=== PATIENT | female | born 1995 | race Caucasian/White ===

== ENCOUNTER 2017-03-15 17:15 | Emergency (ER) | payer OTHER ==
[2017-03-15 17:33] VITALS: BP 144/69; PULSE 107; TEMP 98.3; BMI 19.3
--- NOTE | 2017-03-15 17:40 | PDOC ---
Rapid Medical Evaluation Time Seen by Provider: 03/15/17 17:29 Medical Evaluation: Allergies Allergy/AdvReac Type Severity Reaction Status Date / Time No Known Allergies Allergy Verified 03/15/17 17:29 Vital Signs Temp Pulse Resp BP Pulse Ox 98.3 F 107 H 16 144/69 100 03/15/17 17:31 03/15/17 17:31 03/15/17 17:31 03/15/17 17:31 03/15/17 17:31 03/15/17 17:38 Pt presents to the ED with complaints of: low abd pain, no urinary or vaginal complaints, 6 weeks preg, no u/s yet On brief exam: vss Pt ordered for: ua, ucx Pt to proceed to the ED Discharge Disposition - Diagnosis Lower abdominal pain - Referrals - Patient Instructions - Post Discharge Activity
[2017-03-15 18:18] LABS: URINE APPEARANCE CLEAR; URINE BILIRUBIN NEGATIVE (NEGATIVE); URINE BLOOD NEGATIVE (NEGATIVE); URINE COLOR STRAW; URINE GLUCOSE (UA) NEGATIVE (NEGATIVE); URINE KETONE NEGATIVE (NEGATIVE); URINE LEUK ESTERASE TRACE (NEGATIVE); URINE NITRITE NEGATIVE (NEGATIVE); URINE PROTEIN NEGATIVE (NEGATIVE); URINE UROBILINOGEN NEGATIVE mg/dL (0.2-1.0)
[2017-03-15 18:27] LABS: EPI CELLS RARE /HPF (FEW); URINE MUCUS RARE
--- NOTE | 2017-03-15 20:46 | PDOC ---
History of Present Illness - General History Source: Patient Exam Limitations: No Limitations - History of Present Illness Initial Comments: 03/15/17 21:22 The patient is a 21 year old female, G 1 P0 A 0 with no significant past medical history, who presents to the emergency department with, lower quadrant pain, dysuria, and yellow discharge. The patient reports taking two at home tests which were both positive. She describes her pain as waxing and waning. She describes her yellow discharge as not foul smelling. She denies recent fevers, chills, headache or dizziness. She denies recent nausea, vomit, diarrhea or constipation. She denies recent frequency, urgency or hematuria. She denies recent chest pain or shortness of breath. Allergies: NKA Past surgical history: None reported. Social history: Nonsmoker. Denies EtOH use and recreational drug use. Primary Care Physician: Dr. Magy Renteria OB: Dr. Marni Gonzalez <Bruce Ray - Last Filed: 03/15/17 21:24> <Natalia Frey - Last Filed: 03/16/17 07:09> - General Chief Complaint: Pain Stated Complaint: PAIN Time Seen by Provider: 03/15/17 17:29 Past History <Bruce Ray - Last Filed: 03/15/17 21:24> - Past Medical History COPD: No - Reproductive History Is Patient Now?: Yes (#): 1 - Suicide/Smoking/Psychosocial Hx Smoking History: Never smoked Have you smoked in the past 12 months: No Information on smoking cessation initiated: No Hx Alcohol Use: No Drug/Substance Use Hx: No Substance Use Type: None <Natalia Frey - Last Filed: 03/16/17 07:09> - Past Medical History Allergies/Adverse Reactions: Allergies Allergy/AdvReac Type Severity Reaction Status Date / Time No Known Allergies Allergy Verified 03/15/17 17:29 Home Medications: Ambulatory Orders NK [No Known Home Medication] 03/15/17 Review of Systems - Review of Systems Able to Perform ROS?: Yes Comments:: 03/15/17 21:23 GENERAL/CONSTITUTIONAL: No fever or chills. No weakness. HEAD, EYES, EARS, NOSE AND THROAT: No change in vision. No ear pain or discharge. No sore throat. CARDIOVASCULAR: No chest pain or shortness of breath. RESPIRATORY: No cough, wheezing, or hemoptysis. GASTROINTESTINAL: No nausea, vomiting, diarrhea or constipation. ABDOMEN: +LQ pain. GENITOURINARY: +Dysuria. +Yellow discharge. No frequency, or change in urination. MUSCULOSKELETAL: No joint or muscle swelling or pain. No neck or back pain. SKIN: No rash NEUROLOGIC: No headache, vertigo, loss of consciousness, or change in strength/ sensation. ENDOCRINE: No increased thirst. No abnormal weight change. HEMATOLOGIC/LYMPHATIC: No anemia, easy bleeding, or history of blood clots. ALLERGIC/IMMUNOLOGIC: No hives or skin allergy. All Other Systems: Reviewed and Negative <Bruce Ray - Last Filed: 03/15/17 21:24> *Physical Exam - Vital Signs Last Vital Signs Temp Pulse Resp BP Pulse Ox 98.3 F 107 H 16 144/69 100 03/15/17 17:31 03/15/17 17:31 03/15/17 17:31 03/15/17 17:31 03/15/17 17:31 - Physical Exam Comments: 03/15/17 21:24 GENERAL: Awake, alert, and fully oriented, in no acute distress HEAD: No signs of trauma EYES: PERRLA, EOMI, sclera anicteric, conjunctiva clear ENT: Auricles normal inspection, hearing grossly normal, nares patent, oropharynx clear without exudates. Moist mucosa NECK: Normal ROM, supple, no lymphadenopathy, JVD, or masses LUNGS: Breath sounds equal, clear to auscultation bilaterally. No wheezes, and no crackles HEART: Regular rate and rhythm, normal S1 and S2, no murmurs, rubs or gallops ABDOMEN: Soft, nontender, normoactive bowel sounds. No guarding, no rebound. No masses PELVIC: +Yellow discharge. External genitalia normal without lesions.No cervical motion tenderness. No adnexal tenderness. EXTREMITIES: Normal range of motion, no edema. No clubbing or cyanosis. No cords, erythema, or tenderness NEUROLOGICAL: Cranial nerves II through XII grossly intact. Normal speech, normal gait SKIN: Warm, Dry, normal turgor, no rashes or lesions noted. <Bruce Ray - Last Filed: 03/15/17 21:24> - Vital Signs Last Vital Signs Temp Pulse Resp BP Pulse Ox 98.3 F 107 H 16 144/69 100 03/15/17 17:31 03/15/17 17:31 03/15/17 17:31 03/15/17 17:31 03/15/17 17:31 <Natalia Frey - Last Filed: 03/16/17 07:09> ED Treatment Course - ADDITIONAL ORDERS Additional order review: Laboratory Results 03/15/17 03/15/17 20:16 18:11 Beta HCG, Quant 37006.0 Urine Color Straw Urine Appearance Clear Urine pH 6.0 Ur Specific [place] 1.015 Urine Protein Negative Urine Glucose (UA) Negative Urine Ketones Negative Urine Blood Negative Urine Nitrite Negative Urine Bilirubin Negative Urine Urobilinogen Negative Ur Leukocyte Esterase Trace Urine WBC (Auto) 1 Urine RBC (Auto) <1 Ur Epithelial Cells Rare Urine Mucus Rare <Bruce Ray - Last Filed: 03/15/17 21:24> - ADDITIONAL ORDERS Additional order review: Laboratory Results 03/15/17 18:11 Urine Color Straw Urine Appearance Clear Urine pH 6.0 Ur Specific [place] 1.015 Urine Protein Negative Urine Glucose (UA) Negative Urine Ketones Negative Urine Blood Negative Urine Nitrite Negative Urine Bilirubin Negative Urine Urobilinogen Negative Ur Leukocyte Esterase Trace Urine WBC (Auto) 1 Urine RBC (Auto) <1 Ur Epithelial Cells Rare Urine Mucus Rare - RADIOLOGY Radiology Studies Ordered: Category Date Time Status <14WKS US [US] Stat Ultrasound 03/15/17 19:24 Ordered <Natalia Frey - Last Filed: 03/16/17 07:09> Medical Decision Making - Medical Decision Making 03/16/17 07:08 UA: no UTI; Abd exam normal. SOno demonstrates live 7 week IUP with good FH. Pelvic exam normal. No vag bleeding. <Natalia Frey - Last Filed: 03/16/17 07:09> *DC/Admit/Observation/Transfer - Attestations Scribe Attestion: 03/15/17 21:24 Documentation prepared by Bruce Ray, acting as medical delivery technician for Natalia Frey MD. <Bruce Ray - Last Filed: 03/15/17 21:24> - Discharge Dispostion Admit: No <Natalia Frey - Last Filed: 03/16/17 07:09> Diagnosis at time of Disposition: Lower abdominal pain, 7 weeks gestation of - Discharge Dispostion Disposition: HOME Condition at time of disposition: Stable - Referrals Referrals: Magy Renteria [Primary Care Provider] - - Patient Instructions Printed Discharge Instructions: DI for Abdominal Pain -- Early - Post Discharge Activity
== END 2017-03-15 22:31 | disposition home or self-care (01) ==
LOC: JER 17:15
DX: O26.891 Other specified pregnancy related conditions, first trimester (principal); R10.30 Lower abdominal pain, unspecified; Z3A.01 Less than 8 weeks gestation of pregnancy
CPT/HCPCS: 36415; 76801-TC; 81003; 81015; 84702; 87086; 87491; 87591; 99283-25

== ENCOUNTER 2017-10-20 03:50 | Inpatient (IN) | payer OTHER ==
[2017-10-20] MEDS: DEXTROSE 5%-LACTATED RINGERS 1,000 ML IV SCH (04:20)
[2017-10-20] MEDS ORDERED: AMPICILLIN SODIUM 2 GM VIAL ONE (04:22)
[2017-10-20] MEDS ORDERED: AMPICILLIN - 2 GM in SODIUM CHLORIDE 100 ML IVPB ONE (04:30)
[2017-10-20 04:32] LABS: BASO % 0.1 % (0-2.0); EOS % 0.2 % (0-4.5); HEMATOCRIT 40.3 % (32.4-45.2); HEMOGLOBIN 13.3 GM/dL (10.7-15.3); LYMPH % 10.9 % (8-40); MCH 27.6 pg (25.7-33.7); MEAN CELL VOLUME 83.6 fl (80-96); MEAN PLT VOLUME 8.8 fl (7.5-11.1); MONO % 3.7 % (3.8-10.2); NEUT % 85.1 % (42.8-82.8); PLATELET COUNT 191 K/MM3 (134-434); RBC 4.82 M/mm3 (3.60-5.2); RDW 15.4 % (11.6-15.6); WHITE BLOOD COUNT 12.5 K/mm3 (4.0-10.0)
[2017-10-20 04:36] VITALS: BMI 24.7
[2017-10-20 04:45] LABS: INR 0.99 (0.83-1.09); PROTHROMBIN TIME (PATIENT) 11.2 SEC (9.7-13.0)
[2017-10-20 04:48] LABS: ACTIVATED PTT 26.7 SECONDS (25.2-36.5)
[2017-10-20] MEDS ORDERED: BUTORPHANOL TARTRATE 1 MG/ML VIAL ONE ×2 (04:52)
[2017-10-20] MEDS ORDERED: PROMETHAZINE HCL 25 MG/1 ML VIAL ONE (04:52)
[2017-10-20 04:53] LABS: ANION GAP 4 (8-16); BLOOD UREA NITROGEN 10 mg/dL (7-18); CALCIUM 8.6 mg/dL (8.5-10.1); CHLORIDE 108 mmol/L (98-107); CO2 28 mmol/L (21-32); CREATININE 0.6 mg/dL (0.55-1.02); GLUCOSE,RANDOM 120 mg/dL (74-106); POTASSIUM 3.9 mmol/L (3.5-5.1); SODIUM 140 mmol/L (136-145)
[2017-10-20] MEDS ORDERED: PROMETHAZINE HCL 25 MG/1 ML VIAL IVPB ONE (05:00)
[2017-10-20] MEDS ORDERED: BUTORPHANOL TARTRATE 1 MG/ML VIAL IVPB ONE (05:00)
[2017-10-20] MEDS: AMPICILLIN - 1 GM in SODIUM CHLORIDE 100 ML IVPB SCH ×2 (08:40→13:23)
[2017-10-20] MEDS ORDERED: TUBERCULIN PPD 5 TU/0.1ML SYRINGE (IN PATIENT USE ONLY) ID ONE (09:00)
[2017-10-20] MEDS ORDERED: FENTANYL/BUPIVACAINE/NS/PF - PCEA - 50 ML DISP.SYRIN EP ONE (09:35)
[2017-10-20] MEDS ORDERED: OXYTOCIN 30 UNITS in 0.9% NS 30 UNIT/500 ML INFUS.BAG IVPB ONE (09:36)
[2017-10-20] MEDS ORDERED: LIDOCAINE HCL 1% PRESERVATIVE FREE - 30ML VIAL ONE (09:43)
[2017-10-20] MEDS ORDERED: BUPIVACAINE HCL/PF 0.25% (2.5MG/ML) 10 ML VIAL ONE (09:56)
[2017-10-20] MEDS ORDERED: NALOXONE HCL 0.4 MG/ML VIAL IVPUSH PRN (10:17)
[2017-10-20] MEDS ORDERED: FENTANYL/BUPIVACAINE/NS/PF - PCEA - 50 ML DISP.SYRIN EP SCH (10:30)
--- NOTE | 2017-10-20 10:49 | HP ---
Past Medical History - Admission Chief Complaint: Labor pain History of Present Illness: 22 yo , LMP 01/22/17, EDC 11/06/17, @ 37 weeks gestation, admitted for labor pain. History Source: Patient Limitations to Obtaining History: No Limitations - Past Medical History ...: 1 ...Para: 0 ...Term: 0 ...: 0 ...Spon : 0 ...Induced : 0 ...Multiple Gestation: 0 ...LMP: 01/22/17 ... Weeks Gestation by Dates: 37.2 ...EDC by Dates: 11/07/17 ...EDC by Sono: 11/06/17 - Past Surgical History Past Surgical History: Yes: None Hx Myomectomy: No Hx Transabdominal Cerclage: No - Smoking History Smoking history: Never smoked Have you smoked in the past 12 months: No - Alcohol/Substance Use Hx Alcohol Use: No History of Substance Use: reports: None - Social History Usual Living Arrangement: Yes: With Spouse History of Recent Travel: No Home Medications - Allergies Allergies/Adverse Reactions: Allergies Allergy/AdvReac Type Severity Reaction Status Date / Time No Known Allergies Allergy Verified 10/19/17 17:17 - Home Medications Home Medications: Ambulatory Orders Vit/Iron Fum/Folic AC [ Tablet] 1 each PO DAILY 07/16/17 Review of Systems - Review of Systems Constitutional: reports: No Symptoms Eyes: reports: No Symptoms HENT: reports: No Symptoms Neck: reports: No Symptoms Cardiovascular: reports: No Symptoms Respiratory: reports: No Symptoms Gastrointestinal: reports: No Symptoms Genitourinary: reports: Pain Breasts: reports: No Symptoms Reported Musculoskeletal: reports: No Symptoms Integumentary: reports: No Symptoms Neurological: reports: No Symptoms Endocrine: reports: No Symptoms Hematology/Lymphatic: reports: No Symptoms Psychiatric: reports: No Symptoms Pain Intensity: 9 Physical Exam - Maternity Vital Signs: Vital Signs Temperature 99.8 F H 10/20/17 10:15 Pulse Rate 87 10/20/17 10:25 Respiratory Rate 20 10/20/17 10:25 Blood Pressure 108/65 10/20/17 10:25 O2 Sat by Pulse Oximetry (%) 96 10/20/17 10:25 Constitutional: Yes: Well Nourished Eyes: Yes: Conjunctiva Clear HENT: Yes: Atraumatic Neck: Yes: Supple Cardiovascular: Yes: Regular Rate and Rhythm Lungs: Clear to auscultation Breast(s): Yes: WNL - Abdominal Exam/OB Number of Fetuses: Single Presentation: Vertex Intensity: Mod/Strong - Physical Exam Musculoskeletal: Yes: WNL Extremities: Yes: WNL ...Motor Strength: WNL Psychiatric: Yes: Alert, Oriented - Labs Lab Results: CBC, BMP 10/20/17 04:20 10/20/17 04:20 Problem List - Problems (1) 37 weeks gestation of Code(s): Z3A.37 - 37 WEEKS GESTATION OF (2) Pain during labor Code(s): O99.89 - OTH DISEASES AND CONDITIONS COMPL PREG/CHLDBRTH; R52 - PAIN, UNSPECIFIED Assessment/Plan 37 weeks gestation Active labor Admit to L&D Anticipate
[2017-10-20] MEDS ORDERED: BISACODYL 10 MG SUPP.RECT RC PRN (11:16)
[2017-10-20] MEDS ORDERED: WITCH HAZEL 50% (TUCKS) 40 PAD/JAR PAD TP PRN (11:16)
[2017-10-20] MEDS ORDERED: BENZOCAINE 28 GM HEMORRHOIDAL OINTMENT TP PRN (11:16)
[2017-10-20] MEDS ORDERED: METHYLERGONOVINE MALEATE 0.2 MG/1 ML AMP IM PRN (11:16)
[2017-10-20] MEDS ORDERED: BENZOCAINE 20% 57 GM BOTTLE TP PRN (11:16)
[2017-10-20] MEDS ORDERED: ACETAMINOPHEN 325 MG TABLET (FP) PO PRN (11:16)
--- NOTE | 2017-10-20 11:16 | PN ---
Delivery - Delivery Vaginal Delivery: Spontaneous Type of Anesthesia: Epidural Episiotomy/Laceration: Midline EBL (cc): 300 Delivery, Single - Feeding Plan Initial Plan: Exclusive throughout hospitalization Remarks - Remarks Remarks: Normal spontaneous vaginal delivery of a live boy over midline episiotomy. Nose / Oropharynx suctioned @ perineum. Cord clamped and cut. Placenta expelled spontaneously intact. Episiotomy repaired with 2.0 Chromic.
[2017-10-20] MEDS ORDERED: ELECTROLYTE-148 SOLN 1,000 ML IV SCH (11:30)
[2017-10-20] MEDS ORDERED: OXYTOCIN 20 UNITS in 0.9% NS 20 UNIT/1,000 ML INFUS.BAG IV SCH (11:30)
[2017-10-20] MEDS ORDERED: IBUPROFEN 600 MG TABLET (FP) PO ONE (11:43)
[2017-10-20] MEDS ORDERED: ACETAMINOPHEN 325 MG TABLET (FP) ONE (11:43)
[2017-10-20] MEDS: IBUPROFEN 600 MG TABLET (FP) PO PRN (11:44)
[2017-10-20] MEDS: FERROUS SO4 325 MG TABLET (FP) PO SCH (22:05)
--- NOTE | 2017-10-21 05:02 | PN ---
Post Progress Note - Subjective Subjective: 22 yo Para 1 status post vaginal delivery, seen and evaluated. No complaints. Post Day: 1 Type of Delivery: Vital Signs: Vital Signs Temperature 98.4 F 10/20/17 21:37 Pulse Rate 81 10/20/17 21:37 Respiratory Rate 20 10/20/17 21:37 Blood Pressure 116/59 10/20/17 21:37 O2 Sat by Pulse Oximetry (%) 100 10/20/17 12:30 Breast Exam: Yes: Soft Uterus: Yes: Fundus Firm Abdomen/GI: Yes: Abdomen soft, Tolerating PO Lochia: Yes: Rubra Lochia, amount: Moderate Extremities: Yes: Calves non-tender Perineum: Yes: Episiotomy (Healing) Activity: Ambulating - Labs Labs: CBC WBC 12.5 K/mm3 (4.0-10.0) H 10/20/17 04:20 RBC 4.82 M/mm3 (3.60-5.2) 10/20/17 04:20 Hgb 13.3 GM/dL (10.7-15.3) 10/20/17 04:20 Hct 40.3 % (32.4-45.2) 10/20/17 04:20 MCV 83.6 fl (80-96) 10/20/17 04:20 MCH 27.6 pg (25.7-33.7) 10/20/17 04:20 MCHC 33.0 g/dl (32.0-36.0) 10/20/17 04:20 RDW 15.4 % (11.6-15.6) D 10/20/17 04:20 Plt Count 191 K/MM3 (134-434) 10/20/17 04:20 MPV 8.8 fl (7.5-11.1) 10/20/17 04:20 Absolute Neuts (auto) 10.6 # 10/20/17 04:20 Neutrophils % 85.1 % (42.8-82.8) H D 10/20/17 04:20 Lymphocytes % 10.9 % (8-40) D 10/20/17 04:20 Monocytes % 3.7 % (3.8-10.2) L 10/20/17 04:20 Eosinophils % 0.2 % (0-4.5) D 10/20/17 04:20 Basophils % 0.1 % (0-2.0) 10/20/17 04:20 Nucleated RBC % 0 % (0-0) 10/20/17 04:20 Problem List - Problems (1) 37 weeks gestation of Code(s): Z3A.37 - 37 WEEKS GESTATION OF (2) Pain during labor Code(s): O99.89 - OTH DISEASES AND CONDITIONS COMPL PREG/CHLDBRTH; R52 - PAIN, UNSPECIFIED (3) Status post normal vaginal delivery Code(s): [id number] - Assessment/Plan Status post vaginal delivery Stable Continue routine care
[2017-10-21] MEDS: DEXTROSE 5%-LACTATED RINGERS 1,000 ML IV SCH (07:22)
[2017-10-21 08:17] LABS: BASO % 0.3 % (0-2.0); EOS % 1.4 % (0-4.5); HEMATOCRIT 36.2 % (32.4-45.2); HEMOGLOBIN 12.2 GM/dL (10.7-15.3); LYMPH % 19.9 % (8-40); MCHC 33.6 g/dl (32.0-36.0); MEAN CELL VOLUME 83.5 fl (80-96); MEAN PLT VOLUME 8.6 fl (7.5-11.1); MONO % 5.1 % (3.8-10.2); NEUT % 73.3 % (42.8-82.8); PLATELET COUNT 171 K/MM3 (134-434); RBC 4.33 M/mm3 (3.60-5.2); RDW 15.3 % (11.6-15.6); WHITE BLOOD COUNT 13.9 K/mm3 (4.0-10.0)
[2017-10-21] MEDS: PRENATAL VITAMINS W/ FOLIC ACID TABLET (FP) PO SCH (09:05)
[2017-10-21] MEDS: FERROUS SO4 325 MG TABLET (FP) PO SCH ×2 (09:05→21:23)
[2017-10-21] MEDS: IBUPROFEN 600 MG TABLET (FP) PO PRN (11:08)
[2017-10-21] MEDS ORDERED: SENNOSIDES/DOCUSATE COMBO (SENNA PLUS) TABLET (UD) PO PRN (22:00)
[2017-10-21 22:05] VITALS: PULSE 83
--- NOTE | 2017-10-22 00:49 | DS ---
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 Vital Signs: Vital Signs Temperature 98.9 F 10/21/17 22:00 Pulse Rate 83 10/21/17 22:00 Respiratory Rate 18 10/21/17 22:00 Blood Pressure 107/64 10/21/17 22:00 O2 Sat by Pulse Oximetry (%) 100 10/20/17 12:30 Constitutional: Yes: Well Nourished Eyes: Yes: Conjunctiva Clear HENT: Yes: Atraumatic Neck: Yes: Supple Cardiovascular: Yes: Regular Rate and Rhythm Respiratory: Yes: Regular Gastrointestinal: Yes: Normal Bowel Sounds Renal/: Yes: WNL Vaginal Exam: Yes: Normal Cervix: Yes: Normal Uterus: Yes: Firm Extremities: Yes: WNL Neurological: Yes: Alert, Oriented ...Motor Strength: WNL Psychiatric: Yes: Alert, Oriented Labs: CBC, BMP 10/21/17 07:30 10/20/17 04:20 Delivery - Delivery Vaginal Delivery: Spontaneous Type of Anesthesia: Local, Epidural Episiotomy/Laceration: Midline EBL (cc): 300 Delivery, Single - Stages of Labor Date 1st Stage Initiatied: 10/20/17 Time 1st Stage Initiated: 01:00 Date 2nd Stage Initiated: 10/20/17 Time 2nd Stage Initiated: 10:50 Date of Delivery: 10/20/17 Time of Delivery: 10:59 Time Placenta Delivered: 11:03 - Condition of Dam 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: No Gender: Male Weight: 6 lb 12 oz Position: Left, OA Total Hours ROM (Hrs/Mins): 0hrs 48min - 1 Minute Total Score: 9 5 Minutes Total Score: 9 - [place] Feeding Plan Initial Plan: Exclusive throughout hospitalization Discharge Summary Reason For Visit: LABOR ADMIT Current Active Problems 37 weeks gestation of (Acute) Pain during labor (Acute) Status post normal vaginal delivery (Acute) Procedures: Principal: Normal spontaneous vaginal delivery Hospital Course: Routine care Condition: Good - Instructions Diet, Activity, Other Instructions: Return to MD office in 6 weeks, call office for an appointment. Referrals: Marni Gonzalez MD [Staff Physician] - Disposition: HOME - Home Medications Comprehensive Discharge Medication List: Ambulatory Orders Vit/Iron Fum/Folic AC [ Tablet] 1 each PO DAILY 07/16/17
[2017-10-22 07:47] VITALS: BP 112/64; TEMP 98.3
[2017-10-22] MEDS: FERROUS SO4 325 MG TABLET (FP) PO SCH (09:18)
[2017-10-22] MEDS: PRENATAL VITAMINS W/ FOLIC ACID TABLET (FP) PO SCH (09:18)
== END 2017-10-22 11:50 | disposition home or self-care (01) | DRG 560 ==
LOC: JDEL 03:50 → JLDR 04:05 → J3W 12:55
PROVIDERS: ADMIT Obstetrics & Gynecology; ATTEND Obstetrics & Gynecology
PROC: 0W8NXZZ Division of Female Perineum, External Approach (ICD-10-PCS; principal; 2017-10-20)
PROC: 10E0XZZ Delivery of Products of Conception, External Approach (ICD-10-PCS; 2017-10-20)
DX: O80 Encounter for full-term uncomplicated delivery (principal); Z3A.37 37 weeks gestation of pregnancy; Z37.0 Single live birth
CPT/HCPCS: 36415; 59409; 80048; 85025; 85610; 85730; 86593; 86850; 86900; 86901